=== PATIENT | female | born 1990 | race African-American/Black ===

== ENCOUNTER 2016-12-31 11:50 | Inpatient (IN) ==
[2016-12-31 12:27] LABS: Apearance,Urine CLOUDY (Clear); Bilirubin,Urine Negative (Negative); Blood, Urine Negative (Negative); Glucose,Urine (UA) Negative (Negative); Ketones,Urine Negative (Negative); Mucus,Urine Moderate /LPF (Occasional); Nitrite,Urine Negative (Negative); Protein,Urine 30 MG/DL; RBC,Urine 2 /HPF (0-4); Squamous Epithelial Cell,Urine Few /HPF (0-10); Urine Color Amber (Yellow); Urine Specific Gravity 1.025 (1.001-1.035); WBC,Urine 13 /HPF (0-6)
[2016-12-31] MEDS: LACTATED RINGERS 1,000 ML IV SCH ×3 (14:00→23:00)
--- NOTE | 2016-12-31 16:49 | Ultrasound Report ---
Biophysical profile ultrasound Indication: Decreased viability Findings: Single intrauterine gestation is seen in vertex presentation. The placenta is located in fundus position and appears within normal limits. There is normal breathing motion, body movement and tone exhibited during the study. Normal amount of amniotic fluid is seen. The amniotic fluid index is 7.3 cm. heart rate measures 134 beats per minute. Impression: Biophysical profile 8 out of 8 PROCEDURE INTERPRETED AT [facility] DEPARTMENT OF RADIOLOGY Final Report Signed by: Dr. Carlos Irwin
--- NOTE | 2016-12-31 16:52 | Ultrasound Report ---
US OB >= 14 weeks fetus Date: 12/31/2016 3:13 PM Indication: viability, variable decelerations Comparison: 23 July 2015 Findings: Single intrauterine gestation is seen in vertexpresentation.. Placenta is in fundus position and appears within normal limits. organs appear within normal limits for age. This includes evaluation of cranium, spine, heart, stomach, kidneys and bladder. Cord insertion was not identified.. measurements estimate gestational age at 36w 1d Estimated weight:[id number] Amniotic fluid index: 7.3 cm heart rate: 134 bpm Impression: Single intrauterine gestation as described above. The Ultrasound images were captured and stored. PROCEDURE INTERPRETED AT [facility] DEPARTMENT OF RADIOLOGY Final Report Signed by: Dr. Carlos Irwin
[2016-12-31 17:38] LABS: Basophils % 0.1 % (0.0-0.8); Eosinophils # 0.1 10*3/uL (0.0-0.87); Eosinophils % 1.3 % (0.00-10.9); Hematocrit 27.4 VOL% (35.7-47.0); Hemoglobin 9.7 GM/DL (12.0-16.0); Immature Granulocytes % 0.6 %; Immature Granulocytes Absolute 0.04 #; Lymphocytes # 1.6 10*3/uL (1.4-4.0); Mean Corpuscular HGB Conc 35.4 GM/DL (32-36); Mean Corpuscular Hemoglobin 33 PG (27-34); Mean Corpuscular Volume 92.6 FL (87-102); Mean Platelet Volume 11.9 FL (9.6-12.0); Monocytes # 0.5 10*3/uL (0.11-0.8); Monocytes % 6.6 % (1.7-12.7); Neutrophils # 4.6 10*3/uL (1.4-7.4); Neutrophils % 68.4 % (38.7-73.9); Platelet Count 157 T/CUMM (130-400); Red Blood Count 2.96 MC/CUMM (3.8-5.5); Red Cell Distribution Width 17.2 % (9.3-17.3); White Blood Count 6.8 T/CUMM (4-12)
[2016-12-31 17:55] LABS: Barbiturates Screen,Urine Negative (Negative); Benzodiazepines Screen,Urine Negative (Negative); Cannabinoid Screen,Urine Negative (Negative); Opiate Screen,Urine Negative (Negative); Phencyclidine Screen,Urine Negative (Negative)
[2016-12-31] MEDS ORDERED: ONDANSETRON 4 MG/2 ML VIAL IV PRN (17:56)
[2016-12-31] MEDS ORDERED: AMPICILLIN INJ 2,000 MG in SODIUM CHLORIDE 0.9% 50 ML IV ONE (18:01)
[2016-12-31 18:05] LABS: Albumin 2.8 G/DL (3.4-5.0); Bilirubin,Total 0.7 MG/DL (0.2-1.0); Calcium 8.9 MG/DL (8.5-10.1); Osmolality,Calculated 270.8 MOS/KG (273-304); Potassium 3.9 MMOL/L (3.5-5.1); Total Protein 6.9 G/DL (6.4-8.3)
[2016-12-31 19:01] LABS: INR 0.9; PT Patient Result 9.9 SECS; Partial Thromboplastin Time 25.2 SECS (0-40)
[2016-12-31 21:12] LABS: HIV Antigen/Antibody Result Nonreactive (Nonreactive); Hepatitis B Surface Ab Result Positive; Rubella Antibody IgG 35.7 IU/ML
[2016-12-31] MEDS: AMPICILLIN INJ 1,000 MG in SODIUM CHLORIDE 0.9% 50 ML IV SCH (22:26)
[2017-01-01] MEDS: LACTATED RINGERS 1,000 ML IV SCH (02:24)
[2017-01-01] MEDS: AMPICILLIN INJ 1,000 MG in SODIUM CHLORIDE 0.9% 50 ML IV SCH ×2 (02:25→06:33)
[2017-01-01] MEDS ORDERED: BUTORPHANOL 2 MG/ML VIAL IV PRN (02:37)
[2017-01-01] MEDS ORDERED: BUTORPHANOL 1 MG/ML VIAL IV PRN (02:39)
[2017-01-01] MEDS ORDERED: OXYTOCIN/LR 20 UNIT/1,000 ML BAG IV SCH (06:30)
[2017-01-01] MEDS ORDERED: PROMETHAZINE 25 MG/1 ML VIAL IM ONE (07:32)
[2017-01-01] MEDS ORDERED: fentaNYL 2 MCG/ROPIV 0.2% EPID 150 ML EPIDURAL SCH (07:32)
[2017-01-01] MEDS ORDERED: FAMOTIDINE 20 MG/2 ML VIAL IV ONE (07:32)
[2017-01-01] MEDS ORDERED: diphenhydrAMINE 50 MG/1 ML VIAL IV PRN ×2 (07:32)
[2017-01-01] MEDS ORDERED: hydrOXYzine HCL 25 MG/1 ML VIAL IM PRN (07:32)
[2017-01-01] MEDS ORDERED: ePHEDrine 50 MG/ML AMP IV PRN (07:32)
[2017-01-01] MEDS ORDERED: CITRIC ACID/SODIUM CITRATE 30 ML UDCUP PO ONE (07:32)
[2017-01-01] MEDS ORDERED: miSOPROStol 200 MCG TABLET ONE (10:05)
[2017-01-01] MEDS ORDERED: LIDOCAINE 1% 50 ML VIAL ONE (10:05)
[2017-01-01 10:56] LABS: Apearance,Urine CLEAR (Clear); Bilirubin,Urine Negative (Negative); Blood, Urine Negative (Negative); Glucose,Urine (UA) Negative (Negative); Ketones,Urine 20 mg/dL (Negative); Mucus,Urine Occasional /LPF (Occasional); Nitrite,Urine Negative (Negative); Protein,Urine Negative; RBC,Urine 3 /HPF (0-4); Squamous Epithelial Cell,Urine Occasional /HPF (0-10); Urine Color Yellow (Yellow); Urine Specific Gravity 1.015 (1.001-1.035); WBC,Urine 2 /HPF (0-6)
[2017-01-01] MEDS ORDERED: METHYLERGONOVINE 0.2 MG/1 ML AMP ONE (10:58)
--- NOTE | 2017-01-01 12:28 | Anesthesia Post-Op ---
Anesthesia Post OP - Post Ansesthetic Evaluation Patient seen in post op: Yes Resp: within normal limits CV: within normal limits Mental: within normal limits Temp: within normal limits Aldo-[id number]-[id number]: within normal limits Nausea and Vomiting: within normal limits Pain: within normal limits
--- NOTE | 2017-01-01 12:45 | History and Physical Update ---
History and Physical Update - History and Physical H&P was reviewed, the patient examined and there: are no changes in the patients condition since last H&P was completed. - Dictation Physical: refer to scanned H&P - Physical Exam Mental Status: alert and oriented Heart: regular rate and rhythm Lung: clear to auscultation Abdomen: within normal limits Vitals: within normal limits History and Physical Changes: 37 weeks, oligohydramnios with Category 2 tracing, gestational HTN admitted for induction . care with Melodie Napier CNM without reported complications. Plan cytotec induction, expect . Cervix 3cm , posterior
[2017-01-01] MEDS ORDERED: MEASLES/MUMPS/RUBELLA VACCINE 0.5 ML VIAL SUBCUT ONE (12:47)
[2017-01-01] MEDS ORDERED: BENZOCAINE 20%/MENTHOL 0.5% SPRAY 56 GM CAN TOP PRN (12:47)
[2017-01-01] MEDS ORDERED: WITCH HAZEL PADS 100/JAR TOP PRN (12:47)
[2017-01-01] MEDS ORDERED: HYDROCORTISONE 2.5% RECTAL CREAM 30 GM TUBE TOP PRN (12:47)
[2017-01-01] MEDS ORDERED: RHO(D) IMMUNE GLOBULIN 300 MCG SYRINGE IM ONE (12:47)
[2017-01-01] MEDS ORDERED: LANOLIN 50% CREAM 0.3 OZ TUBE TOP PRN (12:47)
[2017-01-01] MEDS ORDERED: OXYTOCIN/LR 20 UNIT/1,000 ML BAG IV ONE (12:47)
[2017-01-01] MEDS ORDERED: DIPH/TET/ACEL PERT BOOSTER VACCINE 0.5 ML VIAL IM ONE (12:47)
[2017-01-01] MEDS ORDERED: ONDANSETRON 4 MG/2 ML VIAL IV PRN (12:47)
[2017-01-01] MEDS ORDERED: BISACODYL 10 MG SUPP RECTAL PRN (12:47)
[2017-01-01] MEDS ORDERED: ACETAMINOPHEN 325 MG TABLET PO PRN (12:47)
--- NOTE | 2017-01-01 12:47 | Operative Note ---
Date of procedure: 01/01/17 Pre-op diagnosis: 37wks,oligohydramnios,Category 2 tracing,gest HTN Post-op diagnosis: same Procedure: Delivery note. Patient progressed to complete and pushing with labor epidural and Pitocin augmentation and delivered a viable female over intact perineum. Baby was bulb suctioned on the perineum. Cord blood was collected and placenta was delivered intact. Fundus is firm. Estimated blood loss 300 mL. Complications none. Patient is stable and the baby is stable. Anesthesia: epidural Surgeon / Physician: Jen Collado Estimated blood loss: other (300cc) Specimens: other (placenta to path; cord blood to lab) Condition: stable Disposition: no change Results - Labs CBC & BMP: 12/31/16 17:30 12/31/16 17:29 Discharge Plan - Discharge Medications No Action Multivitamins Tablet 1 tablet PO DAILY - Follow Up or Referral - Forms/Instructions
[2017-01-01] MEDS ORDERED: OXYTOCIN 10 UNIT/ML VIAL ONE (14:27)
[2017-01-01] MEDS: IBUPROFEN 800 MG TABLET PO PRN ×2 (15:38→21:30)
[2017-01-01] MEDS: oxyCODONE/ACETAMINOPHEN 5-325 MG TABLET PO PRN (15:40)
[2017-01-01] MEDS: DOCUSATE SODIUM 100 MG CAPSULE PO SCH (20:38)
[2017-01-02 06:09] LABS: Basophils % 0.5 % (0.0-0.8); Eosinophils # 0.2 10*3/uL (0.0-0.87); Eosinophils % 1.9 % (0.00-10.9); Hematocrit 23.1 VOL% (35.7-47.0); Hemoglobin 8.3 GM/DL (12.0-16.0); Immature Granulocytes % 0.5 %; Immature Granulocytes Absolute 0.04 #; Lymphocytes # 2.3 10*3/uL (1.4-4.0); Lymphocytes % 27.2 % (21.3-54.2); Mean Corpuscular HGB Conc 35.9 GM/DL (32-36); Mean Corpuscular Hemoglobin 33 PG (27-34); Mean Platelet Volume 12.2 FL (9.6-12.0); Monocytes # 0.6 10*3/uL (0.11-0.8); Monocytes % 7.2 % (1.7-12.7); Neutrophils # 5.3 10*3/uL (1.4-7.4); Neutrophils % 62.7 % (38.7-73.9); Platelet Count 141 T/CUMM (130-400); Red Blood Count 2.51 MC/CUMM (3.8-5.5); Red Cell Distribution Width 16.5 % (9.3-17.3); White Blood Count 8.4 T/CUMM (4-12)
[2017-01-02] MEDS: DOCUSATE SODIUM 100 MG CAPSULE PO SCH ×2 (08:45→20:54)
[2017-01-02] MEDS: FERROUS SULFATE 325 MG TABLET PO SCH ×2 (08:45→20:55)
--- NOTE | 2017-01-02 11:49 | OB/GYN Progress Note ---
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 Exam LABEL MAKER - Constitutional Vitals: Vital Signs Temp Pulse Resp BP Pulse Ox 01/02/17 11:25 97 F L 83 20 132/87 98 01/02/17 08:00 96.9 F L 76 18 130/78 100 01/02/17 06:44 18 01/02/17 05:00 18 01/02/17 03:00 18 01/01/17 17:00 97.4 F L 76 18 135/73 98 01/01/17 16:00 97.3 F L 64 18 126/79 97 01/01/17 15:00 73 17 133/81 100 01/01/17 14:30 81 18 131/71 100 01/01/17 14:00 97.2 F L 85 20 139/75 100 01/01/17 12:00 97.8 F General appearance: normal weight, no acute distress - Head Head exam: Present: normal inspection, normocephalic - Eye Eye exam: Present: EOMI - Respiratory Respiratory exam: Present: clear to auscultation bilaterally - Cardiovascular Cardiovascular exam: Present: regular rate and rhythm - GI/Abdominal GI/Abdominal exam: Present: soft (fundus firm, nontender) - Extremities Exam Extremities exam: Present: normal inspection - Neurological Exam Neurological exam: Present: alert, oriented X3 - Psychiatric Psychiatric exam: Present: normal affect, normal mood - Skin Skin exam: Present: normal color, warm Results - Labs CBC & BMP: 01/02/17 05:54 12/31/16 17:29 Lab Results: I have reviewed the past 24 hour labs
[2017-01-02] MEDS: oxyCODONE/ACETAMINOPHEN 5-325 MG TABLET PO PRN ×2 (12:02→22:57)
[2017-01-02] MEDS: IBUPROFEN 800 MG TABLET PO PRN ×2 (12:02→20:54)
[2017-01-03 08:25] VITALS: BP 137/77
[2017-01-03] MEDS: oxyCODONE/ACETAMINOPHEN 5-325 MG TABLET PO PRN (09:07)
[2017-01-03] MEDS: DOCUSATE SODIUM 100 MG CAPSULE PO SCH (09:07)
[2017-01-03] MEDS: FERROUS SULFATE 325 MG TABLET PO SCH (09:07)
[2017-01-03] MEDS: IBUPROFEN 800 MG TABLET PO PRN (09:07)
--- NOTE | 2017-01-03 11:28 | Discharge Summary ---
Hospital Course - Hospital Course Hospital Course: Patient received on 01/01/2017 with gestational hypertension, oligohydramnios, at 37 weeks gestation. At that time she was admitted for induction of labor. During the process of her Cytotec induction patient did receive an epidural anesthetic and Pitocin also. She delivered a female over an intact perineum. Patient is bottlefeeding without difficulty. Patient with history of her control method of choice at this time. She is being discharged home and she will follow-up at the clinic in 2 weeks. Diagnosis - Discharge Diagnosis (1) (normal spontaneous vaginal delivery) Status: Acute (2) Anemia Status: Acute Specialty Discharge - Follow Up or Referrals Follow up with: Melodie Napier CFNP [Advanced Practice Nurse] - Discharge Plan - Discharge Data Disposition: Disch To Home/Self Care Condition at Discharge: Stable Discharge Diet: advance to your usual diet Activity: resume usual activities as tolerated Hygiene: may shower Weight Bearing at Discharge: full weight bearing Driving: not for (2 weeks) Contact your physician if you experience:: fever over 101, Difficulty voiding, Redness or swelling, Nausea/Vomiting, Shortness of breath, Bleeding, pain uncontrolled by pain medications - Discharge Medications New Ferrous Sulfate Tab [Feosol Original Tab] 325 mg PO TID #90 tablet Ibuprofen Tab [Motrin Tab] 800 mg PO Q6H PRN #90 tablet PRN Reason: Pain Moderate (4-7) No Action Multivitamins Tablet 1 tablet PO DAILY - Follow Up or Referral Follow Up: Melodie Napier CFNP [Advanced Practice Nurse] - 2 Weeks (F/U with MICHAEL Souza) - Forms/Instructions Instructions: Perineal Care (DC), Vaginal Delivery (DC), Bleeding (DC) Exam - Constitutional Vitals: Period Temp Pulse Resp BP Sys/Arevalo Pulse Ox Last 24 Hr 96.8 F-98.6 F 63-80 15-20 119-141/72-78 98-100 General appearance: no acute distress - Head Head exam: Present: normal inspection - Eye Eye exam: Present: EOMI Pupils: Present: normal accommodation - ENT ENT exam: Present: normal exam, normal external ear exam - Neck Neck exam: Present: normal inspection - Respiratory Respiratory exam: Present: clear to auscultation bilaterally - Cardiovascular Cardiovascular exam: Present: regular rate and rhythm - GI/Abdominal GI/Abdominal exam: Present: normal bowel sounds - Extremities Exam Extremities exam: Present: normal inspection, normal capillary refill, full ROM - Back Exam Back exam: Present: normal inspection - Neurological Exam Neurological exam: Present: alert, oriented X3, normal gait - Psychiatric Psychiatric exam: Present: normal affect, normal mood - Skin Skin exam: Present: normal color, warm, dry Discharge Results Procedures and tests throughout hospitalization: Pending Orders 01/01/17 03:52 HBs Antigen, S Stat Labs on day of discharge: Laboratory Tests 12/31/16 12/31/16 12/31/16 12:05 12:12 17:29 WBC RBC Hgb Hct MCV MCH MCHC RDW Plt Count MPV Neut % (Auto) Lymph % (Auto) [place] % (Auto) Eos % (Auto) Baso % (Auto) Neut # (Auto) Lymph # (Auto) [place] # (Auto) Eos # (Auto) Baso # (Auto) Immature Gran % Nucleated RBC % Immature Gran # Nucleated RBCs # Immature Plt Fraction INR PT Patient/Control Mix Fibrinogen Circ Anticoag PTT Sodium 137 Potassium 3.9 Chloride 106 Carbon Dioxide 26 Anion Gap 8.9 BUN 6 L Creatinine 0.50 L GFR Calculation 198 BUN/Creatinine Ratio 12.00 Glucose 99 Calculated Osmolality 270.8 L Uric Acid Calcium 8.9 Total Bilirubin 0.70 AST 12 ALT 14 Alkaline Phosphatase 129 H Total Protein 6.9 Albumin 2.8 L Globulin 4.1 H Albumin/Globulin Ratio 0.6 L Urine Color Bety Urine Appearance Cloudy Urine pH 6.0 Ur Specific [place] 1.025 Urine Protein 30 Urine Glucose (UA) Negative Urine Ketones Negative Urine Blood Negative Urine Nitrate Negative Urine Bilirubin Negative Urine Urobilinogen 4.0 H Urine Leukocytes Large H Urine RBC 2 Urine WBC 13 Ur Squamous Epith Cells Few Urine Mucus Moderate Ur Culture Indicated? Results to follow Urine Opiates Screen Negative Ur Barbiturates Screen Negative Ur Phencyclidine Scrn Negative U Amphetamine/Methamph Negative U Benzodiazepines Scrn Negative U Cocaine Metab Screen Negative U Cannabinoids Screen Negative Treponema pallidum IgG Hep Bs Antibody HIV 1&2 Antigen & Ab Rubella IgG Antibody Blood Type Antibody Screen 12/31/16 12/31/16 12/31/16 17:30 17:30 17:30 WBC 6.8 RBC 2.96 L Hgb 9.7 L Hct 27.4 L MCV 92.6 MCH 33 MCHC 35.4 RDW 17.2 Plt Count 157 MPV 11.9 Neut % (Auto) 68.4 Lymph % (Auto) 23.0 [place] % (Auto) 6.6 Eos % (Auto) 1.3 Baso % (Auto) 0.1 Neut # (Auto) 4.6 Lymph # (Auto) 1.6 [place] # (Auto) 0.5 Eos # (Auto) 0.1 Baso # (Auto) 0.0 Immature Gran % 0.6 Nucleated RBC % 0.0 Immature Gran # 0.04 Nucleated RBCs # 0.00 Immature Plt Fraction 0.0 INR PT Patient/Control Mix Fibrinogen Circ Anticoag PTT Sodium Potassium Chloride Carbon Dioxide Anion Gap BUN Creatinine GFR Calculation BUN/Creatinine Ratio Glucose Calculated Osmolality Uric Acid 3.3 Calcium Total Bilirubin AST ALT Alkaline Phosphatase Total Protein Albumin Globulin Albumin/Globulin Ratio Urine Color Urine Appearance Urine pH Ur Specific [place] Urine Protein Urine Glucose (UA) Urine Ketones Urine Blood Urine Nitrate Urine Bilirubin Urine Urobilinogen Urine Leukocytes Urine RBC Urine WBC Ur Squamous Epith Cells Urine Mucus Ur Culture Indicated? Urine Opiates Screen Ur Barbiturates Screen Ur Phencyclidine Scrn U Amphetamine/Methamph U Benzodiazepines Scrn U Cocaine Metab Screen U Cannabinoids Screen Treponema pallidum IgG Nonreactive Hep Bs Antibody Positive HIV 1&2 Antigen & Ab Nonreactive Rubella IgG Antibody 35.7 Blood Type Antibody Screen 12/31/16 12/31/16 12/31/16 17:57 18:06 18:06 WBC RBC Hgb Hct MCV MCH MCHC RDW Plt Count MPV Neut % (Auto) Lymph % (Auto) [place] % (Auto) Eos % (Auto) Baso % (Auto) Neut # (Auto) Lymph # (Auto) [place] # (Auto) Eos # (Auto) Baso # (Auto) Immature Gran % Nucleated RBC % Immature Gran # Nucleated RBCs # Immature Plt Fraction INR 0.9 PT Patient/Control Mix 9.9 Fibrinogen 375 Circ Anticoag PTT 25.2 Sodium Potassium Chloride Carbon Dioxide Anion Gap BUN Creatinine GFR Calculation BUN/Creatinine Ratio Glucose Calculated Osmolality Uric Acid Calcium Total Bilirubin AST ALT Alkaline Phosphatase Total Protein Albumin Globulin Albumin/Globulin Ratio Urine Color Urine Appearance Urine pH Ur Specific [place] Urine Protein Urine Glucose (UA) Urine Ketones Urine Blood Urine Nitrate Urine Bilirubin Urine Urobilinogen Urine Leukocytes Urine RBC Urine WBC Ur Squamous Epith Cells Urine Mucus Ur Culture Indicated? Urine Opiates Screen Ur Barbiturates Screen Ur Phencyclidine Scrn U Amphetamine/Methamph U Benzodiazepines Scrn U Cocaine Metab Screen U Cannabinoids Screen Treponema pallidum IgG Hep Bs Antibody HIV 1&2 Antigen & Ab Rubella IgG Antibody Blood Type O POSITIVE Antibody Screen Negative 01/01/17 01/02/17 09:35 05:54 WBC 8.4 RBC 2.51 L Hgb 8.3 L Hct 23.1 L MCV 92.0 MCH 33 MCHC 35.9 RDW 16.5 Plt Count 141 MPV 12.2 H Neut % (Auto) 62.7 Lymph % (Auto) 27.2 [place] % (Auto) 7.2 Eos % (Auto) 1.9 Baso % (Auto) 0.5 Neut # (Auto) 5.3 Lymph # (Auto) 2.3 [place] # (Auto) 0.6 Eos # (Auto) 0.2 Baso # (Auto) 0.0 Immature Gran % 0.5 Nucleated RBC % 0.0 Immature Gran # 0.04 Nucleated RBCs # 0.00 Immature Plt Fraction 0.0 INR PT Patient/Control Mix Fibrinogen Circ Anticoag PTT Sodium Potassium Chloride Carbon Dioxide Anion Gap BUN Creatinine GFR Calculation BUN/Creatinine Ratio Glucose Calculated Osmolality Uric Acid Calcium Total Bilirubin AST ALT Alkaline Phosphatase Total Protein Albumin Globulin Albumin/Globulin Ratio Urine Color Yellow Urine Appearance Clear Urine pH 6.0 Ur Specific [place] 1.015 Urine Protein Negative Urine Glucose (UA) Negative Urine Ketones 20 Urine Blood Negative Urine Nitrate Negative Urine Bilirubin Negative Urine Urobilinogen 4.0 H Urine Leukocytes Negative Urine RBC 3 Urine WBC 2 Ur Squamous Epith Cells Occasional Urine Mucus Occasional Ur Culture Indicated? Not indicated Urine Opiates Screen Ur Barbiturates Screen Ur Phencyclidine Scrn U Amphetamine/Methamph U Benzodiazepines Scrn U Cocaine Metab Screen U Cannabinoids Screen Treponema pallidum IgG Hep Bs Antibody HIV 1&2 Antigen & Ab Rubella IgG Antibody Blood Type Antibody Screen DS: Provider Date of admission: 12/31/16 17:57 Primary care physician: . No PCP Attending physician on admission: Jen Collado DO Consults: 12/31/16 17:57 Consult to Anesthesiology [CONS] Routine Consulting Provider: Reason for Anesthesiology: Epidural Consult Comment: Epidural for pain managment 01/01/17 12:47 Consult to Capacitor Repairer [CONS] Routine Consult Capacitor Repairer: Breast Feeding Discharging clinician: AMANDA Barrios
--- NOTE | 2017-01-04 10:19 | Pathology Report from [facility] ---
[facility] ACCESSION # : [id number] PATIENT NAME : Elsy Lee ORDERING DR : EVANGELINA NELSON DO CLINICAL HX: L4 37.2 wks, EDC 01/20/17 @ 37.2 wks, Cat II strip tracing, decreased SHYLA POST-OP DX: Same SPECIMEN INFO: Placenta GROSS DESCRIPTION: Received fresh labeled with the patients name and consists of a 436 gram placenta measuring 17.1 x 15.4 cm x up to 2.2 cm. membranes are cavazos, somewhat translucent. The umbilical cord is pericentrally inserted, contains three vessels and measures 28.7 cm. surface is blue- garcía, partially circumarginate. The maternal surface is beefy red with several areas of adherent clotted blood. The cotyledons are mildly disrupted. No gross abnormalities on sectioning. Sections submitted: A membranes and cord, B and maternal surfaces. DIAGNOSIS FOR ELSY LEE: PLACENTA, 37.2 WEEKS GESTATIONAL AGE, DELIVERY: Slightly immature placenta, 436 gms trimmed weight. Mild villous edema. Small placental infarct. Trivascular umbilical cord, 28.7 cm in length. COLLECTED DATE: 01/03/2017 [facility] REPORT DATE: 01/04/2017 ELECTRONICALLY SIGNED BY: Kelsea Callejas M.D. 01/04/2017 - 9:46:55 [facility]
== END 2017-01-03 13:45 | disposition home or self-care (01) | DRG 560 ==
LOC: N.LDOUT 11:50 → N.LD 11:52 → N.OB 01-01 14:00
PROVIDERS: ADMIT Obstetrics & Gynecology; ATTEND Obstetrics & Gynecology

== ENCOUNTER 2017-12-21 19:09 | Observation (INO) ==
[2017-12-21] MEDS ORDERED: METHOCARBAMOL INJ 1,000 MG in SODIUM CHLORIDE 0.9% 100 ML IV STA (19:39)
[2017-12-21] MEDS ORDERED: KETOROLAC 30 MG/1 ML VIAL IV STA (19:39)
[2017-12-21] MEDS ORDERED: ONDANSETRON 4 MG/2 ML VIAL IV STA (19:40)
[2017-12-21] MEDS ORDERED: METHOCARBAMOL 1,000 MG/10 ML VIAL ONE (19:53)
[2017-12-21] MEDS ORDERED: METHOCARBAMOL 1,000 MG/10 ML VIAL IV STA (19:57)
[2017-12-21 20:25] LABS: Basophils % 0.4 % (0.0-0.8); Eosinophils # 0.1 10*3/uL (0.0-0.87); Eosinophils % 1.7 % (0.00-10.9); Hemoglobin 9.7 GM/DL (12.0-16.0); Immature Granulocytes % 0.1 %; Immature Granulocytes Absolute 0.01 #; Lymphocytes # 2.2 10*3/uL (1.4-4.0); Lymphocytes % 28.7 % (21.3-54.2); Mean Corpuscular HGB Conc 32.3 GM/DL (32-36); Mean Corpuscular Hemoglobin 28 PG (27-34); Mean Platelet Volume 11.5 FL (9.6-12.0); Monocytes # 0.7 10*3/uL (0.11-0.8); Monocytes % 8.7 % (1.7-12.7); Neutrophils # 4.6 10*3/uL (1.4-7.4); Neutrophils % 60.4 % (38.7-73.9); Platelet Count 201 T/CUMM (130-400); Red Blood Count 3.49 MC/CUMM (3.8-5.5); Red Cell Distribution Width 14.6 % (9.3-17.3); White Blood Count 7.6 T/CUMM (4-12)
[2017-12-21] MEDS ORDERED: ONDANSETRON 4 MG/2 ML VIAL IV PRN (20:44)
[2017-12-21] MEDS ORDERED: fentaNYL 100 MCG/2 ML VIAL IV PRN (20:44)
[2017-12-21] MEDS ORDERED: SODIUM CHLORIDE 0.9% 1,000 ML IV STA (20:45)
[2017-12-21] MEDS ORDERED: MEPERIDINE 25 MG/1 ML VIAL IV PRN (22:58)
[2017-12-21] MEDS ORDERED: OXYTOCIN/LR 30 UNIT/1,000 ML BAG IV SCH (23:00)
[2017-12-22] MEDS ORDERED: PROMETHAZINE 25 MG/1 ML VIAL IM PRN (02:38)
[2017-12-22 04:16] LABS: Albumin 2.8 G/DL (3.4-5.0); Bilirubin,Total 0.5 MG/DL (0.2-1.0); Total Protein 5.9 G/DL (6.4-8.3)
[2017-12-22 04:17] LABS: PT Patient Result 10.7 SECS; Partial Thromboplastin Time < 21.0 SECS (0-40); Potassium 3.8 MMOL/L (3.5-5.1)
[2017-12-22 04:29] LABS: Basophils % 0.3 % (0.0-0.8); Eosinophils # 0.1 10*3/uL (0.0-0.87); Eosinophils % 1.1 % (0.00-10.9); Hematocrit 25.1 VOL% (35.7-47.0); Hemoglobin 8.1 GM/DL (12.0-16.0); Immature Granulocytes % 0.6 %; Immature Granulocytes Absolute 0.05 #; Lymphocytes # 1.8 10*3/uL (1.4-4.0); Mean Corpuscular HGB Conc 32.3 GM/DL (32-36); Mean Corpuscular Hemoglobin 28 PG (27-34); Mean Corpuscular Volume 85.7 FL (87-102); Monocytes # 0.6 10*3/uL (0.11-0.8); Monocytes % 7.3 % (1.7-12.7); Neutrophils # 5.5 10*3/uL (1.4-7.4); Neutrophils % 68.7 % (38.7-73.9); Platelet Count 184 T/CUMM (130-400); Red Blood Count 2.93 MC/CUMM (3.8-5.5); Red Cell Distribution Width 14.7 % (9.3-17.3); White Blood Count 7.9 T/CUMM (4-12)
[2017-12-22 11:13] LABS: Hematocrit 23.1 VOL% (35.7-47.0); Hemoglobin 7.3 GM/DL (12.0-16.0)
[2017-12-22 11:24] VITALS: BP 114/54
[2017-12-22] MEDS ORDERED: IBUPROFEN 800 MG TABLET PO PRN (12:49)
[2017-12-22] MEDS ORDERED: FERROUS SULFATE 325 MG TABLET PO SCH (13:00)
== END 2017-12-22 17:25 | disposition home or self-care (01) ==
LOC: EDBD → EDUNIT# → N.ED 19:09 → N.EDINP 20:43 → INTOOBSV 20:43 → N.EDINP 22:18 → N.OB 22:25
PROVIDERS: ADMIT Obstetrics & Gynecology; ATTEND Obstetrics & Gynecology

== ENCOUNTER 2018-01-24 16:00 | Inpatient (IN) ==
[2018-01-24] MEDS ORDERED: ONDANSETRON 4 MG/2 ML VIAL IV STA (17:04)
[2018-01-24] MEDS ORDERED: SODIUM CHLORIDE 0.9% 500 ML IV STA (17:04)
[2018-01-24 17:20] LABS: Basophils % 0.4 % (0.0-0.8); Eosinophils # 0.1 10*3/uL (0.0-0.87); Eosinophils % 1.5 % (0.00-10.9); Hematocrit 24.3 VOL% (35.7-47.0); Hemoglobin 6.9 GM/DL (12.0-16.0); Immature Granulocytes % 0.4 %; Immature Granulocytes Absolute 0.03 #; Lymphocytes # 1.7 10*3/uL (1.4-4.0); Lymphocytes % 24.7 % (21.3-54.2); Mean Corpuscular HGB Conc 28.4 GM/DL (32-36); Mean Corpuscular Hemoglobin 22 PG (27-34); Mean Corpuscular Volume 77.6 FL (87-102); Mean Platelet Volume 11.3 FL (9.6-12.0); Monocytes # 0.6 10*3/uL (0.11-0.8); Monocytes % 9.4 % (1.7-12.7); Neutrophils # 4.2 10*3/uL (1.4-7.4); Neutrophils % 63.6 % (38.7-73.9); Platelet Count 158 T/CUMM (130-400); Red Blood Count 3.13 MC/CUMM (3.8-5.5); Red Cell Distribution Width 18.5 % (9.3-17.3); White Blood Count 6.7 T/CUMM (4-12)
[2018-01-24 17:27] LABS: Albumin 3.6 G/DL (3.4-5.0); Bilirubin,Total 0.4 MG/DL (0.2-1.0); Calcium 8.8 MG/DL (8.5-10.1); Osmolality,Calculated 276.4 MOS/KG (273-304); PT Patient Result 10.4 SECS; Potassium 3.9 MMOL/L (3.5-5.1); Total Protein 7.5 G/DL (6.4-8.3)
[2018-01-24] MEDS ORDERED: MAGNESIUM HYDROXIDE SUSP 30 ML UDCUP PO PRN (17:29)
[2018-01-24] MEDS ORDERED: ACETAMINOPHEN 325 MG TABLET PO PRN (17:29)
[2018-01-24] MEDS ORDERED: ONDANSETRON 4 MG/2 ML VIAL IV PRN (17:29)
[2018-01-24] MEDS ORDERED: MORPHINE 4 MG/1 ML VIAL IV PRN (17:29)
[2018-01-24] MEDS ORDERED: SODIUM CHLORIDE 0.9% 1,000 ML IV PRN (17:29)
[2018-01-24] MEDS ORDERED: BISACODYL 10 MG SUPP RECTAL PRN (17:29)
[2018-01-24] MEDS ORDERED: SODIUM CHLORIDE 0.9% 1,000 ML IV SCH (17:30)
[2018-01-24 18:10] LABS: Hypochromasia 2+; Microcytosis 1+; Platelet Estimate Adequate; Target Cells Few; Tear Drop Cells Few
[2018-01-24 18:11] LABS: Acanthocytes Few
[2018-01-24] MEDS ORDERED: FUROSEMIDE 20 MG/2 ML VIAL IV ONE (23:00)
[2018-01-25 06:32] LABS: Hematocrit 27.2 VOL% (35.7-47.0)
[2018-01-25 06:33] LABS: Hemoglobin 8.4 GM/DL (12.0-16.0)
[2018-01-25] MEDS: DOCUSATE SODIUM 100 MG CAPSULE PO SCH ×2 (06:33→09:38)
[2018-01-25 07:03] LABS: Albumin 3.5 G/DL (3.4-5.0); Bilirubin,Total 0.9 MG/DL (0.2-1.0); Calcium 8.3 MG/DL (8.5-10.1); Osmolality,Calculated 276.4 MOS/KG (273-304); Potassium 3.9 MMOL/L (3.5-5.1); Total Protein 7.3 G/DL (6.4-8.3)
[2018-01-25] MEDS ORDERED: LACTATED RINGERS 1,000 ML IV SCH ×2 (10:00→15:00)
[2018-01-25] MEDS ORDERED: FAMOTIDINE 20 MG TABLET PO ONE (11:45)
[2018-01-25] MEDS ORDERED: DIAZEPAM 5 MG TABLET PO ONE (11:45)
[2018-01-25] MEDS ORDERED: IBUPROFEN 800 MG TABLET PO PRN (13:34)
[2018-01-25] MEDS ORDERED: PROPOFOL 200 MG/20 ML VIAL IV ONE (13:41)
[2018-01-25] MEDS ORDERED: ONDANSETRON 4 MG/2 ML VIAL ONE (13:41)
[2018-01-25] MEDS ORDERED: DEXAMETHASONE 10 MG/1 ML VIAL ONE (13:41)
[2018-01-25] MEDS ORDERED: MIDAZOLAM 2 MG/2 ML VIAL ONE (13:41)
[2018-01-25] MEDS ORDERED: SEVOFLURANE 1 UNIT/15 MINUTE INH ONE (13:42)
[2018-01-25] MEDS ORDERED: fentaNYL 100 MCG/2 ML VIAL ONE (13:55)
[2018-01-25 16:07] VITALS: BP 124/77
[2018-01-25] MEDS ORDERED: FERROUS SULFATE 325 MG TABLET PO SCH (21:00)
== END 2018-01-25 20:00 | disposition home or self-care (01) | DRG 952 ==
LOC: EDBD → EDUNIT# → N.ED 16:00 → N.EDINP 17:15 → N.OB 17:34
PROVIDERS: ADMIT Obstetrics & Gynecology; ATTEND Obstetrics & Gynecology